=== PATIENT | female | born 1960 | race Caucasian/White ===

== ENCOUNTER 2020-07-03 07:50 | Emergency (ER) | payer MEDICAID ==
[~2020-07-03] VITALS: Ht 165.1 cm; Wt 97.5 kg
[2020-07-03 07:50] VITALS: BP_SYST 171
[2020-07-03] MEDS ORDERED: OXYMETAZOLINE HCL 0.05% NASAL SPRAY NS PRN (08:15)
[2020-07-03 08:51] VITALS: BP_SYST 154
== END 2020-07-03 08:51 | disposition home or self-care (01) ==
LOC: SED 07:50
DX: R50.9 Fever, unspecified (principal); R05 Cough; R04.0 Epistaxis
CPT/HCPCS: 99282